=== PATIENT | female | born 1965 | race Caucasian/White ===

== ENCOUNTER → 2018-06-28 | Outpatient (CLI) | payer OTHER | LOC: ULTRA 13:45 | DX: R22.2 Localized swelling, mass and lump, trunk (principal); R10.9 Unspecified abdominal pain ==

== ENCOUNTER → 2020-07-31 | Outpatient (CLI) | payer OTHER | LOC: CAT 08:12 | PROVIDERS: ATTEND Nurse Practitioner | DX: Z13.6 Encounter for screening for cardiovascular disorders (principal); I25.10 Atherosclerotic heart disease of native coronary artery without angina pectoris; E78.00 Pure hypercholesterolemia, unspecified ==